=== PATIENT | male | born 1960 | race Caucasian/White ===

== ENCOUNTER 2024-01-22 09:16 | Emergency (ER) | payer OTHER, SELFPAY ==
[2024-01-22 09:17] VITALS: BP 230/100; PULSE 70; RESP 15; TEMP 36.3; O2SAT 95; BMI 36.6
[2024-01-22 09:19] VITALS: BP 230/100; PULSE 68; RESP 15; TEMP 36.3; O2SAT 95
--- NOTE | 2024-01-22 09:42 | CT_ITS ---
STUDY: CT ABDOMEN AND PELVIS WITH CONTRAST REASON FOR EXAM: Male, 63 years old. Right lower quadrant pain RADIATION DOSAGE (If Supplied By Facility): CTDIvol = ( 14.93 ) mGy, DLP = ( 1262.16 ) mGycm TECHNIQUE: Transaxial images were obtained through the abdomen and pelvis without oral contrast. 100 ml of Isovue-300 contrast was administered. Sagittal and coronal images were reconstructed. Individualized dose optimization techniques were used for this CT. COMPARISON: No relevant prior comparison study available FINDINGS: LOWER THORAX: The visualized lung bases are clear. The visualized portions of the heart and pericardium are within normal limits. GALLBLADDER / BILE DUCTS: There are no calcified gallstones present. There is no intrahepatic biliary duct dilatation. The common bile duct is normal in caliber. There are no calcified ductal stones. LIVER: The liver is within normal limits. There are no suspicious hepatic lesions. SPLEEN: The spleen is normal in size. PANCREAS: The pancreas is within normal limits. ADRENAL GLANDS: The adrenal glands are within normal limits. KIDNEYS / BLADDER: There are no renal or ureteral stones. There is no hydronephrosis. There are no focal renal lesions. The urinary bladder is partially distended and appears grossly unremarkable. STOMACH / BOWEL: Normal visualized stomach. There is no bowel obstruction or inflammation. There is a large amount of stool in the colon, consistent with constipation. There are inflammatory changes in the right mid abdomen surrounding an ovoid fat density structure adjacent to the colon. This is consistent with epiploic appendagitis. The appendix is visualized and appears normal. There are postsurgical changes noted from prior ventral hernia repair. There is no evidence of a recurrent hernia. PERITONEUM/RETROPERITONEUM: There is no abdominal or pelvic free air, free fluid or fluid collection. There is no abnormal soft tissue mass identified. There is no abdominal or pelvic lymphadenopathy. VESSELS: The aorta is normal in caliber. The IVC is unremarkable. BONES: There are degenerative changes noted in the spine. There are no destructive osseous lesions. The patient is status post right hip arthroplasty. SOFT TISSUES: The visualized soft tissues are within normal limits. CT/Abdomen/Pelvis W IV Cont ONLY IMPRESSION: Inflammatory changes in the right mid abdomen surrounding an ovoid fat density structure adjacent to the colon. This is consistent with epiploic appendagitis. No bowel obstruction or inflammation. Normal appendix. Constipation. Normal kidneys. No hydronephrosis. Electronically Signed: Jamari Storm MD at 11:05 EDT ,
--- NOTE | 2024-01-22 09:43 | EX.ED.DYSGE1 ---
HPI History of Present Illness Chief Complaint: Abd Pain Informant: patient Narrative Narrative: 63-year-old male presenting to the emergency room with a chief complaint of abdominal pain. Patient states he began to experience a right lower quadrant abdominal pain throughout the day yesterday. He describes it as sharp in nature it was intermittent but today has been constant. He notes no change in urination or bowel movement. No vomiting. No fever. He has a history of hypertension has not yet taken his morning medications. 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 He has not had anything to eat today. He notes his only abdominal surgery is a prior umbilical hernia repair last year with Dr. Francis at [facility]. [facility] Medical History (Updated 01/22/24 @ 11:[address] Luis Herndon DO) Hypertension Home Medications ?Medication ?Instructions ?Recorded ?Last Taken ?Type ketorolac 10 mg tablet 10 mg PO Q6H ##20 04/11/16 Unknown Rx hydrocodone-acetaminophen 5-325mg 1 tab PO Q6H PRN PRN Pain 3 days 01/22/24 Unknown Rx 5mg-325mg #12 TABLETS Allergy/AdvReac Type Severity Reaction Status Date / Time No Known Allergies Allergy Verified 01/22/24 09:19 Surgical History (Updated 01/22/24 @ 09:[address] Luis Herndon DO) History of umbilical hernia repair Social History Smoking Status: Never smoker ROS ROS ED Constitutional Constitutional ED: Denies chills, fever(s) or weight loss Eyes Eyes: Denies change in vision or diplopia ENT ENT ED: Denies ear pain, rhinorrhea or sore throat Cardiovascular Cardiovascular: Denies chest pain, orthopnea, palpitations or racing heartbeat Respiratory/Chest Respiratory/Chest: Denies cough, dyspnea or orthopnea Gastrointestinal Gastrointestinal: Reports abdominal pain; Denies constipation, diarrhea, nausea or vomiting Genitourinary Genitourinary ED: Denies dysuria, hematuria or urinary frequency Musculoskeletal Musculoskeletal: Denies arthralgias, back pain, myalgias or neck pain Integumentary Denies abscess or rash Neurologic Neurologic: Denies headache(s) or weakness Psychiatric Psychiatric: Denies anxiety, depression, suicidal ideation or suicidal thoughts Endocrine Endocrinology: Denies polydipsia, polyphagia or polyuria Allergic/Immunologic Allergic/Immunologic ED: Denies mouth swelling, tongue swelling or urticaria EXAM Physical Exam Const Vital Signs: 01/22/24 09:17 01/22/24 09:19 01/22/24 10:25 Temperature 97.3 F L 97.3 F L Temperature Source Temporal Temporal Pulse Rate 70 68 77 Respiratory Rate 15 15 20 H Blood Pressure 230/100 H 230/100 H 134/72 H Blood Pressure Mean 143 143 92 Pulse Ox 95 95 96 Oxygen Delivery Method Room Air Room Air Room Air 01/22/24 11:44 Temperature 98.0 F Temperature Source Pulse Rate 67 Respiratory Rate 18 Blood Pressure 148/73 H Blood Pressure Mean 98 Pulse Ox 98 Oxygen Delivery Method Positive well nourished, well developed and obese General Appearance ED: well developed Nutritional Appearance: obese HEENT Reports normocephalic, head/scalp atraumatic and moist mucous membranes Eyes PERRL and EOMs intact bilaterally Neck no lymphadenopathy, supple and no JVD Resp normal respiratory effort and clear to auscultation bilaterally Cardio regular rate, regular rhythm and no murmurs GI Inspection: Negative for abdominal distention Auscultation: normoactive bowel sounds Palpation: soft and tender RLQ; Negative for guarding or rebound tenderness present Back/Spine no CVA tenderness and normal ROM Extremity normal to inspection General Extremety ED: Negative for edema General Extremity: Negative for edema Neuro oriented x3 and CN's II-XII intact bilaterally Sensorium / Orientation: alert Motor Exam: strength 5/5 throughout Psych mental status grossly normal Mood & Affect: Negative for depressed or tearful Skin no rashes or lesions noted and no wounds MDM MDM MDM Narrative Medical decision making narrative: Differential diagnosis includes kidney stone acute appendicitis colitis epiploic appendagitis mesenteric adenitis biliary disease small bowel obstruction hernia White count 8.5 with a hemoglobin of 13.7 platelet count of 326. BMP liver lipase showed a glucose of 132. Urinalysis negative. CT then pelvis demonstrates changes on the right side of the abdomen consistent with epiploic appendagitis. Patient received morphine Zofran and IV fluids. For the patient's elevated blood pressure he received a dose of hydralazine which is improved his blood pressure. He will take his blood pressure medications when you get home. For the epiploic appendagitis and going to recommend anti-inflammatories I can write for a few Percocet for severe pain. Return if worsening or concerns follow-up with primary care if not improving History & Record Review Discussion w/independent historian: Patient Lab Data Attestation: I reviewed the patient's lab results. Labs: Laboratory Results - last 24 hr 01/22/24 01/22/24 09:50 10:25 WBC 8.5 RBC 4.59 L Hgb 13.7 Hct 41.3 MCV 90.0 MCH 29.8 MCHC 33.2 RDW Std Deviation 40.3 RDW Coeff of Michael 12.2 Plt Count 326 MPV 9.3 Immature Gran % (Auto) 0.400 Neut % (Auto) 61.9 Lymph % (Auto) 27.6 [place] % (Auto) 7.9 Eos % (Auto) 1.5 Baso % (Auto) 0.7 Absolute Neuts (auto) 5.2 Absolute Lymphs (auto) 2.34 Nucleated RBC % 0 Sodium 138 Potassium 4.2 Chloride 107 Carbon Dioxide 26.0 Anion Gap 5 BUN 11 Creatinine 0.83 Estim Creat Clear Calc 188.78 Est GFR (MDRD) Af Amer 120 Est GFR (MDRD) Non-Af 99 BUN/Creatinine Ratio 13.3 Glucose 132 H Calcium 9.3 Total Bilirubin 0.40 Direct Bilirubin 0.11 AST 19 ALT 34 Alkaline Phosphatase 67 Total Protein 7.3 Albumin 3.4 Globulin 3.9 Lipase 41 Urine Color Yellow Urine Clarity Clear Urine pH 6.0 Ur Specific [place] 1.015 Urine Protein Negative Urine Glucose (UA) Normal Urine Ketones Negative Urine Occult Blood Negative Urine Nitrite Negative Urine Bilirubin Negative Urine Urobilinogen Normal Ur Leukocyte Esterase Negative Urine RBC 0-5 SEEN Urine WBC 0-5 SEEN Ur Squamous Epith Cells 0 SEEN Urine Bacteria 0 SEEN Urine Mucus 0 SEEN Radiography Diagnostic Testing: Clinical Impression(s) from Imaging Studies Abdomen/Pelvis CT 01/22/24 09:42 IMPRESSION: Inflammatory changes in the right mid abdomen surrounding an ovoid fat density structure adjacent to the colon. This is consistent with epiploic appendagitis. No bowel obstruction or inflammation. Normal appendix. Constipation. Normal kidneys. No hydronephrosis. Electronically Signed: Jamari Storm MD at 11:05 EDT , Discharge Plan Triage Chief Complaint: Abd Pain ED Provider: Luis Herndon Dx/Rx/DC Orders Clinical Impression: Abdominal pain, acute, Epiploic appendagitis Prescriptions: New hydrocodone-acetaminophen 5-325 mg tablet 1 tab PO Q6H PRN PRN (Reason: Pain) 3 Days Qty: 12 0RF No Action ketorolac 10 MG tablet 10 mg PO Q6H Qty: 20 0RF Primary Care Provider: Miky Gong Referrals: Care Physician,No Primary [Non-Staff] - Activity Restrictions/Additional Instructions: Due to the inflammation from the epiploic appendagitis I would recommend Motrin 600 mg every 6-8 hours with food. You may use the [place] for severe pain. I would expect resolution of your symptoms over the next several days. Please return to the emergency department if worsening or concerns Print Language: Malay Disposition Disposition: Home, Self Care Discharge Date/Time: 01/22/24 11:48
[2024-01-22] MEDS: Ondansetron 4 MG/2 ML Vial IV (09:50)
[2024-01-22] MEDS: Morphine 4 MG/ML Syringe IV (09:50)
[2024-01-22] MEDS: 0.9% Normal Saline (1000mL) 1,000 ML 999 ML IV (09:50)
[2024-01-22] MEDS: hydrALAZINE 20 MG/ML Vial IV (09:51)
[2024-01-22 10:02] LABS: Absolute Lymphocyte Count 2.34 X10^3/uL (0.83-4.51); Absolute Neutrophil Count 5.2 X10^3/uL (2.0-7.7); Basophil# 0.06 X10^3/uL; Basophil% 0.7 % (0-1); Eosinophil# 0.13 X10^3/uL; Eosinophils% 1.5 % (0-5); Hematocrit 41.3 % (40-54); Hemoglobin 13.7 g/dL (13.0-16.5); Lymphocyte # 2.34 X10^3/ul (0.83-4.51); Lymphocyte % 27.6 % (19-41); Mean Corp Hgb Conc 33.2 g/dL (32-36); Mean Corpuscular Hgb 29.8 pg (27.0-32.0); Mean Platelet Vol. 9.3 fl (6.2-12.0); Monocyte# 0.67 X10^3/uL; Monocyte% 7.9 % (0-10); NRBC Flagged by Analyzer 0 % (0-5); Neutrophil # 5.24 X10^3/uL (2.7-7.7); Neutrophil % 61.9 % (47-70); Platelet Count 326 K/mm3 (150-450); RBC Distribution Width CV 12.2 % (11.6-14.6); RBC Distribution Width SD 40.3 fl (35.1-43.9); Red Blood Count 4.59 M/mm3 (4.6-6.2); White Blood Count 8.5 K/mm3 (4.4-11.0)
[2024-01-22 10:25] VITALS: BP 134/72; PULSE 77; RESP 20; O2SAT 96
[2024-01-22 10:26] LABS: AST(SGOT) 19 U/L (15-37); Alanine Aminotransfer ALT/SGPT 34 U/L (16-61); Albumin, Serum 3.4 g/dL (3.2-5.0); Alkaline Phosphatase 67 U/L (45-117); Anion Gap 5 (5-15); BUN 11 mg/dL (7-18); BUN/Creat Ratio 13.3 RATIO (10-20); Bilirubin, Direct 0.11 mg/dL (0.00-0.30); Calcium,Total 9.3 mg/dL (8.5-10.1); Chloride 107 mmol/L (98-107); Creatinine, Serum 0.83 mg/dL (0.70-1.30); EST Glomerular Filtration Rate 99 mL/min (>60); Est Glom Filt Rate - Afr Amer 120 mL/min (>60); Estimated Creatinine Clearance 188.78 ml/min; Globulin 3.9 g/dL (2.2-4.2); Glucose 132 mg/dL (74-106); Lipase 41 U/L (13-75); Potassium 4.2 mmol/L (3.5-5.1); Protein, Total 7.3 g/dL (6.4-8.2); Sodium Level 138 mmol/L (136-145)
[2024-01-22 10:30] LABS: Bacteria 0 SEEN /hpf (None Seen); Mucous, Urine 0 SEEN /hpf (<or=2+); Squamous Epithelial Cells - UA 0 SEEN /hpf (0-5)
[2024-01-22 10:32] LABS: Color, Urine Yellow (Yellow); Glucose, Dipstick Normal (Normal); Ketone-Dipstick Negative (Negative); Leukocyte Esterase-Dipstick Negative /ul (Negative); Nitrite-Dipstick Negative (Negative); Occult Blood-Urine Negative /ul (Negative); Protein-Dipstick Negative (Negative); Specific Gravity, Urine 1.015 (1.002-1.030); Urine Bilirubin Dipstick Negative (Negative); Urine Clarity Clear (Clear); Urine Urobilinogen Normal (Normal)
[2024-01-22 10:52] LABS: Red Blood Cells-Urine 0-5 SEEN /hpf (0-5); White Blood Cells 0-5 SEEN /hpf (0-5)
[2024-01-22 11:44] VITALS: BP 148/73; PULSE 67; RESP 18; TEMP 36.7; O2SAT 98
--- NOTE | 2024-01-23 09:29 | CASEMGMT ---
Received notification from [facility] pharmacy that the medication Dr. Herndon ordered hydrocodone-acetamin 5-325mg is on backorder. TC to pt, he states that an alternative medication of percocet was given to him instead. Pt states this treatment regimen has been successful in controlling his pain. He denies any further needs.
== END 2024-01-22 11:48 | disposition home or self-care (01) ==
PROVIDERS: Emergency Provider Emergency Medicine; PCP Internal Medicine; Visit Provider Emergency Medicine
DX: R10.31 Right lower quadrant pain (principal); K63.89 Other specified diseases of intestine; Q43.8 Other specified congenital malformations of intestine; E66.9 Obesity, unspecified
CPT/HCPCS: 74177; 80048; 80076; 81001; 83690; 85025; 96361; 96374; 96375; 96376; 99285; J7030; Q9967; A4216; J2405